=== PATIENT | female | born 1985 | race Two or more races ===

== ENCOUNTER 2019-09-01 16:08 | Emergency (ER) | payer MEDICAID ==
[~2019-09-01] VITALS: Ht 172.7 cm; Wt 79.5 kg
[2019-09-01] MEDS ORDERED: IBUPROFEN 400 MG TABLET PO ONE (17:30)
[2019-09-01 18:48] VITALS: BP 101/63
== END 2019-09-01 19:08 | disposition home or self-care (01) ==
LOC: EMS 16:10
DX: M72.2 Plantar fascial fibromatosis (principal); Z91.040 Latex allergy status